=== PATIENT | female | born 1995 | race Caucasian/White ===

== ENCOUNTER → 2018-12-05 | Outpatient (CLI) | payer OTHER ==
--- NOTE | 2018-12-05 11:03 | RAD ---
Left arm ultrasound, 12/05/2018: HISTORY: Lump The area of palpable concern along the lateral aspect of the left upper arm was carefully scanned. There is a subcutaneous nodule at this level which cannot be clearly from the undersurface of the skin. It measures 14 x 14 x 5 mm. Its anterior margin is smooth while its posterior margin is slightly irregular. There are medium level internal echoes with some internal vascularity. It does not demonstrate deep extension into the muscle. This is a nonspecific appearance and may be an inflammatory lesion such as an infected sebaceous cyst or a neoplastic process. Dermatologic and/or surgical consultation is suggested. Electronically signed by: Adebayo Thurman MD (12/05/2018 11:01 AM) [facility]
== END | disposition home or self-care (01) ==
LOC: US 08:31
PROVIDERS: ATTEND Nurse Practitioner Adult Health
DX: R22.32 Localized swelling, mass and lump, left upper limb (principal)
CPT/HCPCS: 76881